=== PATIENT | male | born 1950 | race Two or more races ===

== ENCOUNTER 2024-07-11 17:37 | Inpatient (IN) | payer MEDICARE ==
[~2024-07-11] VITALS: Ht 175.3 cm; Wt 72.8 kg
[~2024-07-11 17:37] MED LIST: APIX5TAB MT; FURO-151 MT; LISI20TA31 MT; LORA2TAB95 MT; OXYC-105 MT; POTA-205 MT
[2024-07-11 18:06] LABS: BASOPHILS % 1.4 % (0.0-2.0); EOSINOPHILS % 8.7 % (0.0-5.0); HEMATOCRIT. 39.2 % (42.0-52.0); LYMPHOCYTES % 27.3 % (20.0-50.0); MEAN CORPUSCULAR HEMOGLOBIN 31.1 pg (28.0-32.0); MEAN CORPUSCULAR VOLUME 94.2 fL (80.0-94.0); MEAN PLATELET VOLUME 7.2 fl (7.4-10.4); MONOCYTES % 12.3 % (2.0-8.0); NEUTROPHILS % 50.3 % (40.0-76.0); PLATELET 212 x1000/uL (130-400); RED BLOOD CELL COUNT 4.16 mill/uL (4.7-6.1); RED CELL DISTRIBUTION WIDTH 16.7 % (11.6-14.6); WHITE BLOOD COUNT 5.5 x1000/uL (4.5-11.0)
[2024-07-11 18:12] LABS: CHLORIDE 108 mEq/L (98-107); POTASSIUM 3.9 mEq/L (3.5-5.1); SODIUM 140 mEq/L (136-145)
[2024-07-11 18:13] LABS: CALCIUM 9.1 mg/dL (8.7-10.4); CARBON DIOXIDE 26 mEq/L (21-32)
[2024-07-11 18:18] LABS: GLUCOSE 77 mg/dL (70-105); UREA NITROGEN BLOOD 16 mg/dL (9-23)
[2024-07-11 18:20] LABS: TROPONIN I HIGH SENSITIVITY 7 ng/L (3.0-53)
[2024-07-11 20:35] LABS: TROPONIN I HIGH SENSITIVITY 9 ng/L (3.0-53)
[2024-07-11] MEDS ORDERED: DOCUSATE SODIUM 100MG CAPSULE PO PRN (21:30)
[2024-07-11] MEDS ORDERED: CLONIDINE 0.1MG TABLET PO PRN (21:30)
[2024-07-11] MEDS ORDERED: GUAIFENESIN 200MG/10ML SUGAR FREE UDC PO PRN (21:30)
[2024-07-11] MEDS ORDERED: MAGNESIUM/ALUMINUM HYDROXIDE/SIMETHICONE 30ML UDC PO PRN (21:30)
[2024-07-11] MEDS ORDERED: IPRATROPIUM/ALBUTEROL 0.5-3(2.5)MG/3ML NEB HHN PRN (21:30)
[2024-07-11] MEDS: ACETAMINOPHEN 325MG TABLET PO PRN (22:00)
[2024-07-11] MEDS ORDERED: APIXABAN 2.5 MG TABLET PO SCH (22:30)
[2024-07-11] MEDS ORDERED: FUROSEMIDE 40MG TABLET PO SCH (23:00)
[2024-07-11] MEDS: OXYCODONE HCL/ACETAMINOPHEN 5/325MG TABLET PO PRN (23:11)
[2024-07-11] MEDS ORDERED: NALOXONE HCL 0.4MG/ML VIAL IV PRN (23:15)
[2024-07-12] VITALS (7 sets, daily range): BP systolic 99–109; BP diastolic 61–75; PULSE 87–99; RESP 16–20; TEMP 36.1–36.6; O2SAT 96–98
[2024-07-12] MEDS: LORAZEPAM 2MG/ML UD SYRINGE IV PRN (00:31)
[2024-07-12] MEDS: APIXABAN 5 MG TABLET PO SCH (00:44)
[2024-07-12] MEDS: PANTOPRAZOLE 40MG DR TABLET PO SCH (00:44)
[2024-07-12] MEDS: LISINOPRIL 20MG TABLET PO SCH (00:44)
[2024-07-12 00:52] LABS: IRON 48 ug/dL (65-175)
[2024-07-12 00:55] LABS: TOTAL IRON BINDING CAPACITY 262 ug/dl (250-425)
[2024-07-12 00:59] LABS: FOLIC ACID (FOLATE) SERUM 13.62 ng/mL (>5.38)
[2024-07-12] MEDS: TRAMADOL 50MG TABLET PO PRN (06:28)
[2024-07-12 08:28] LABS: TRIGLYCERIDE 98 mg/dL (0-150)
[2024-07-12 08:29] LABS: ALANINE AMINOTRANSFERASE 20 IU/L (10-49); LDL CHOLESTEROL 87 mg/dL (5-100); THYROID STIMULATING HORMONE 0.36 uIU/mL (0.55-4.78)
[2024-07-12 08:30] LABS: ALBUMIN 3.9 g/dL (3.2-4.8); ASPARTATE AMINOTRANSFERASE 23 IU/L (<34); BILIRUBIN DIRECT 0.1 mg/dL (<=3.0); BILIRUBIN TOTAL 0.4 mg/dL (0.1-1.0); CHOLESTEROL 153 mg/dL (<200); HDL CHOLESTEROL 44 mg/dL (>55); PROTEIN TOTAL 6.2 g/dL (6.0-8.3)
[2024-07-12] MEDS ORDERED: LISINOPRIL 5MG TABLET PO SCH (09:00)
[2024-07-12 12:02] LABS: T4 FREE 1.19 ng/dL (0.89-1.76)
[2024-07-12] MEDS: FERROUS SULFATE 325MG TABLET PO SCH (13:59)
[2024-07-12] MEDS: FUROSEMIDE 40MG/4ML VIAL IV SCH (23:15)
[2024-07-13 04:00] VITALS: BP 117/63; PULSE 69; RESP 18; TEMP 36.3; O2SAT 97
[2024-07-13 10:12] LABS: CHLORIDE 107 mEq/L (98-107); HEMATOCRIT 38.8 % (42.0-52.0); HEMOGLOBIN 12.8 g/dL (14.0-18.0); MEAN CORPUSCULAR HEMOGLOBIN 31.1 pg (28.0-32.0); MEAN CORPUSCULAR VOLUME 94.4 fL (80.0-94.0); PLATELET 181 x1000/uL (130-400); POTASSIUM 4.2 mEq/L (3.5-5.1); RED BLOOD CELL COUNT 4.11 mill/uL (4.7-6.1); RED CELL DISTRIBUTION WIDTH 16.1 % (11.6-14.6); SODIUM 140 mEq/L (136-145); WHITE BLOOD COUNT 4.3 x1000/uL (4.5-11.0)
[2024-07-13 10:13] LABS: CARBON DIOXIDE 25 mEq/L (21-32)
[2024-07-13 10:14] LABS: CALCIUM 8.5 mg/dL (8.7-10.4)
[2024-07-13 10:18] LABS: GLUCOSE 147 mg/dL (70-105)
[2024-07-13 10:19] LABS: UREA NITROGEN BLOOD 14 mg/dL (9-23)
[2024-07-13 10:29] VITALS: BP 114/57; PULSE 72; RESP 18; TEMP 36.4; O2SAT 97
[2024-07-13] MEDS: FAMOTIDINE 20MG TABLET PO SCH (10:36)
[2024-07-13 16:00] VITALS: BP 124/71; PULSE 76; RESP 18; TEMP 36.4; O2SAT 97
[2024-07-13 20:00] VITALS: BP 119/71; PULSE 94; RESP 18; TEMP 36.3; O2SAT 95
[2024-07-13 21:26] LABS: CLARITY URINE CLEAR (CLEAR); COLOR URINE YELLOW (YELLOW); GLUCOSE URINE NEGATIVE (NEGATIVE); KETONES URINE NEGATIVE (NEGATIVE); LEUKOCYTE ESTERASE URINE NEGATIVE (NEGATIVE); NITRITE URINE NEGATIVE (NEGATIVE); OCCULT BLOOD URINE NEGATIVE (NEGATIVE); PH URINE 6.5 (4.5-8.0); PROTEIN URINE NEGATIVE (NEGATIVE); SPECIFIC GRAVITY URINE 1.005 (1.005-1.030); UROBILINOGEN URINE 0.2 E.U./dL (0.2-1.0)
[2024-07-13 21:40] LABS: *AMPHETAMINES SCREEN URINE NEGATIVE (NEGATIVE); *BARBITURATES SCREEN URINE NEGATIVE (NEGATIVE); *BENZODIAZEPINES SCREEN URINE NEGATIVE (NEGATIVE); *COCAINE SCREEN URINE NEGATIVE (NEGATIVE); CANNABINOID URINE SCREEN NEGATIVE (NEGATIVE); ECSTASY MDMA SCREEN URINE NEGATIVE (NEGATIVE); METHADONE URINE SCREEN NEGATIVE (NEGATIVE); OPIATES URINE SCREEN NEGATIVE (NEGATIVE); PHENCYCLIDINE URINE SCREEN NEGATIVE (NEGATIVE)
[2024-07-14] VITALS: BP 124/82; PULSE 65; RESP 20; TEMP 37; O2SAT 99
[2024-07-14 04:00] VITALS: BP 130/90; PULSE 78; RESP 18; TEMP 37; O2SAT 97
[2024-07-14 08:00] VITALS: BP 96/57; PULSE 70; RESP 18; TEMP 36.4; O2SAT 98
[2024-07-14 12:00] VITALS: BP 96/60; PULSE 65; RESP 18; TEMP 36.4; O2SAT 100
[2024-07-14 20:00] VITALS: BP 100/72; PULSE 86; RESP 20; TEMP 36; O2SAT 97
[2024-07-15] VITALS: RESP 20
[2024-07-15 04:00] VITALS: BP 130/95; PULSE 59; RESP 20; TEMP 36; O2SAT 99
[2024-07-15 08:00] VITALS: BP 143/90; PULSE 64; RESP 20; TEMP 36.4; O2SAT 99
[2024-07-15 12:00] VITALS: BP 112/62; PULSE 62; RESP 20; TEMP 36.4; O2SAT 100
[2024-07-15 16:00] VITALS: BP 122/66; PULSE 83; RESP 18; TEMP 36.4; O2SAT 100
[2024-07-15 20:00] VITALS: BP 103/77; PULSE 100; RESP 18; TEMP 36; O2SAT 99
[2024-07-15] MEDS: ENOXAPARIN 80MG/0.8ML SYR SUBCUT SCH (20:13)
[2024-07-16] VITALS (7 sets, daily range): BP systolic 93–112; BP diastolic 52–73; PULSE 60–91; RESP 16–19; TEMP 36.2–36.4; O2SAT 96–100
[2024-07-16 06:05] LABS: CARBON DIOXIDE 28 mEq/L (21-32); CHLORIDE 103 mEq/L (98-107); HEMATOCRIT 41.9 % (42.0-52.0); MEAN CORPUSCULAR HEMOGLOBIN 31.4 pg (28.0-32.0); MEAN CORPUSCULAR HGB CONC 33.4 g/dL (31.0-37.0); MEAN CORPUSCULAR VOLUME 93.9 fL (80.0-94.0); PLATELET 197 x1000/uL (130-400); POTASSIUM 4.9 mEq/L (3.5-5.1); RED BLOOD CELL COUNT 4.46 mill/uL (4.7-6.1); RED CELL DISTRIBUTION WIDTH 16.1 % (11.6-14.6); SODIUM 140 mEq/L (136-145); WHITE BLOOD COUNT 5.7 x1000/uL (4.5-11.0)
[2024-07-16 06:06] LABS: CALCIUM 9.1 mg/dL (8.7-10.4)
[2024-07-16 06:11] LABS: CREATININE 1.1 mg/dL (0.6-1.3); GLUCOSE 88 mg/dL (70-105); UREA NITROGEN BLOOD 14 mg/dL (9-23)
[2024-07-16] MEDS: ONDANSETRON HCL 4MG/2ML INJ IV PRN (08:53)
[2024-07-16 10:37] LABS: INR 1.1; PROTHROMBIN TIME 11.5 sec (9.6-11.0)
[2024-07-16] MEDS ORDERED: APIX5TAB MT (15:30)
[2024-07-16] MEDS ORDERED: FERR-63 PO (15:30)
[2024-07-16] MEDS ORDERED: METO-396 MT (15:30)
[2024-07-16] MEDS ORDERED: LISI-186 MT (15:30)
[2024-07-16] MEDS ORDERED: APIXABAN 5 MG TABLET PO SCH (21:00)
[2024-07-17] MEDS ORDERED: METOPROLOL SUCCINATE 50MG ER TABLET PO SCH (09:00)
== END 2024-07-16 17:50 | disposition home or self-care (01) | DRG 205 ==
LOC: ER 17:37 → 6WST 21:03 → EDBEDREQTM 21:08 → EDBEDREQ 21:08 → ENRESERV 21:59
PROVIDERS: ADMIT Internal Medicine; ATTEND Internal Medicine
DX: M94.0 Chondrocostal junction syndrome [Tietze] (principal); I50.23 Acute on chronic systolic (congestive) heart failure; Z59.00 Homelessness unspecified; I11.0 Hypertensive heart disease with heart failure; D53.9 Nutritional anemia, unspecified; E03.8 Other specified hypothyroidism; F41.9 Anxiety disorder, unspecified; Z66 Do not resuscitate; I48.91 Unspecified atrial fibrillation; Z79.01 Long term (current) use of anticoagulants; Z79.899 Other long term (current) drug therapy; Z86.73 Personal history of transient ischemic attack (TIA), and cerebral infarction without residual deficits; Z76.5 Malingerer [conscious simulation]
CPT/HCPCS: 36415; 71045; 80048; 80061; 80076; 80305; 81003; 82746; 83540; 83550; 83605; 83880; 84439; 84443; 84481; 84484; 85025; 85027; 93005; 93306; 93970; 97161; 97166; 99285; A4606; G0378; J1650; J1940; J2060; J2405